=== PATIENT | female | born 1990 | race Caucasian/White ===

== ENCOUNTER → 2022-05-26 | Outpatient (CLI) | payer OTHER, SELFPAY ==
[2022-05-26 21:31] LABS: Vitamin B12 278 pg/mL (211-911)
[2022-05-26 21:39] LABS: ALB/GLOB Ratio 0.9 RATIO (0.9-2.4); AST(SGOT) 19 U/L (15-37); Alanine Aminotransfer ALT/SGPT 22 U/L (13-56); Albumin, Serum 3.7 g/dL (3.2-5.0); Alkaline Phosphatase 51 U/L (45-117); Anion Gap 8 (5-15); BUN 11 mg/dL (7-18); BUN/Creat Ratio 12.7 RATIO (10-20); Calcium,Total 8.7 mg/dL (8.5-10.1); Chloride 109 mmol/L (98-107); Creatinine, Serum 0.87 mg/dL (0.55-1.02); EST Glomerular Filtration Rate 80 mL/min (>60); Est Glom Filt Rate - Afr Amer 97 mL/min (>60); Globulin 4.2 g/dL (2.2-4.2); Glucose 68 mg/dL (74-106); Potassium 3.8 mmol/L (3.5-5.1); Protein, Total 7.9 g/dL (6.4-8.2); Sodium Level 141 mmol/L (136-145); Thyroid Stim Hormone (TSH) 1.18 uIU/mL (0.358-3.74)
== END | disposition home or self-care (01) ==
PROVIDERS: Visit Provider Nurse Practitioner
DX: L65.9 Nonscarring hair loss, unspecified (principal); R63.5 Abnormal weight gain; R53.83 Other fatigue
CPT/HCPCS: 80053; 82607; 84443

== ENCOUNTER → 2023-12-27 | Outpatient (CLI) | payer MEDICAID, SELFPAY ==
[2023-12-27 17:50] LABS: Absolute Lymphocyte Count 2.48 X10^3/uL (0.83-4.51); Absolute Neutrophil Count 4.5 X10^3/uL (2.0-7.7); Basophil# 0.03 X10^3/uL; Basophil% 0.4 % (0-1); Eosinophil# 0.07 X10^3/uL; Eosinophils% 0.9 % (0-5); Hematocrit 40.2 % (37-47); Hemoglobin 13.3 g/dL (12.0-15.0); Lymphocyte # 2.48 X10^3/ul (0.83-4.51); Lymphocyte % 32.1 % (19-41); Mean Corp Hgb Conc 33.1 g/dL (32-36); Mean Corpuscular Hgb 31.5 pg (27.0-32.0); Mean Corpuscular Volume 95.3 fL (81-99); Mean Platelet Vol. 9.4 fl (6.2-12.0); Monocyte# 0.61 X10^3/uL; Monocyte% 7.9 % (0-10); NRBC Flagged by Analyzer 0 % (0-5); Neutrophil # 4.52 X10^3/uL (2.7-7.7); Neutrophil % 58.6 % (47-70); Platelet Count 321 K/mm3 (150-450); RBC Distribution Width SD 45.1 fl (35.1-43.9); Red Blood Count 4.22 M/mm3 (4.2-5.4); White Blood Count 7.7 K/mm3 (4.4-11.0)
[2023-12-27 18:56] LABS: Hemoglobin A1c 5.1 % (3.8-5.6)
[2023-12-29 22:07] LABS: Chlamydia By Nucleic Acid AMP Negative (Negative); Gonococcus By Nucleic Acid AMP Negative (Negative)
[2024-01-05 10:09] LABS: HIV 1/0/2 SCREEN Non Reactive (Non Reactive); Hep C Antibodies Non Reactive (Non Reactive); Syphilis Antibodies Non Reactive (Non Reactive)
== END | disposition home or self-care (01) ==
PROVIDERS: Referring Provider Obstetrics & Gynecology; Visit Provider Obstetrics & Gynecology
DX: Z34.90 Encounter for supervision of normal pregnancy, unspecified, unspecified trimester (principal)
CPT/HCPCS: 86703; 87340; 36415; 83036; 85025; 86762; 86780; 86803; 86850; 86900; 86901; 87491; 87591

== ENCOUNTER 2024-01-11 14:10 | Outpatient (CLI) | payer MEDICAID, SELFPAY | END 2024-01-11 23:59 | disposition home or self-care (01) | LOC: WOBLAB 14:10 | PROVIDERS: Referring Provider Obstetrics & Gynecology; Visit Provider Obstetrics & Gynecology | DX: O09.90 Supervision of high risk pregnancy, unspecified, unspecified trimester (principal); Z3A.00 Weeks of gestation of pregnancy not specified | CPT/HCPCS: 36415; 86850; 86900; 86901 ==

== ENCOUNTER 2024-04-29 14:09 | Outpatient (CLI) | payer MEDICAID, SELFPAY ==
[2024-04-29 14:24] VITALS: BP 119/73; PULSE 86; RESP 16; TEMP 36.9; O2SAT 97
[2024-04-29 14:31] VITALS: BMI 42.2
[2024-04-29] MEDS: Ondansetron 8 MG Tablet PO (15:04)
[2024-04-29] MEDS: Famotidine 20 MG Tablet 40 MG PO (15:13)
--- NOTE | 2024-04-29 16:58 | OB.TRI.HP_ITS ---
HPI - General HPI Narrative MARYSE BACA, is a 34 F who presents at 27.1 with epigastric burning sensation that radiated to her back after eating pizza this afternoon. sips of water worsens sensation. describes as 4-6 minutes of constant burning sensation to the mid epigastic area. this comes and goes. no alleviating measures taken at home except for a warm shower, which did not assist. Maternal Data Information JENA Calculator Estimated Delivery Date Method Current WG Current Estimate 07/28/24 LMP (Uncertain) 27w 1d Other Estimates 07/22/24 Ultrasound #1 28w 0d PFSH PFSH Medical History Rapid weight gain Loss of hair Fatigue Pneumonia Pneumonia due to COVID-19 virus Post-COVID syndrome Home Medications ?Medication ?Instructions ?Recorded ?Last Taken ?Type docosahexaenoic acid 200 mg mg PO 12/17/23 U nknown History capsule ( DHA) ondansetron 4 mg disintegrating 4 mg PO Q6H PRN nausea and 02/08/24 Unknown Rx tablet vomiting #90 tabs fluoxetine 20 mg capsule 20 mg PO QDAY #30 caps 03/22 Unknown Rx hydroxyzine pamoate 50 mg capsule 50 mg PO TID-QID PRN anxiety #60 03/22/24 Unknown Rx caps metoclopramide HCl 10 mg tablet 10 mg PO QAC #60 tabs 04/20/24 Unknown Rx (Reglan) Allergy/AdvReac Type Severity Reaction Status Date / Time codeine AdvReac Severe headaches Verified 04/29/24 14:30 Family History Father Diverticulitis Mother Fibromyalgia Sister Endometriosis Grandfather Congenital heart defect Surgical History S/P Social History adopted: No household members: significant other and children number of children: 1 current occupational status: employed current occupation: [employer] current occupational exposures/hazards: No pets and animals: Yes (Not managing the litter box) pets and animals: cat(s) and dog(s) history of recent travel: No sexually active: Yes Smoking Status: Never smoker alcohol intake: never substance use type: other details: Vape with CBD & THC well-balanced diet: rarely or never caffeine: No eating out: rarely or never during the past year weight has: increased > 10 lbs what type of physical activity do you participate in: walking frequency: 3-4 times per week duration: 15-30 minutes/day seatbelt use: always do you feel safe at home: Yes additional social history: BF: Adrian - neon sign installer History 2 Elective abortions Hx Para 1 Spontaneous abortions Hx # Term Pregnancies 1 Ectopic pregnancies Hx # Pregnancies Multiple births # of living children 1 Past Pregnancies Del. Date Name GA/Weeks Outcome Route Bth Weight Gen Labor Lgth Anesthesia Del Locatn Provider FOB 04/02/15 Charles 39 live - full term 8lbs Male 12 epidural [facility] Dr Debra Stewart Delivery Date: 04/02/15 Last Updated by: Bonnie Maxwell RN Gest diabetes, Induced, HR and O2 dropping - proceeded with csec Visit Details Expected Delivery Route/Plan Wants RCS BS had a cs for failure to progress 9 years ago- Dr. Richardson in [place] Plans Covid status: [] Flu vaccine: [] Tdap vaccine: [] Rhogam: [] LARC form signed: [] Problem list reviewed and updated with the most current plan of care details and appropriate orders placed. Relevant counseling for the gestational age provided. Continue routine care and follow up unless otherwise noted in visit notes/problem list details OB Flowsheet Initial Weight: Not Recorded Date -?-?-?-?-?-?-?-?-?-?-?-?- EGA Weight BP Urine Prot -?-?-?-?-?-?-?-?-?-?-?-?- Glucose FHR FuHt Pres Dilation -?-?-?-?-?-?-?-?-?-?-?-?- Effaced St Visit Note 12/27/23 -?-?-?-?-?-?-?-?-?-?-?-?- 9w 3d 223 lb 8 oz 114/78 -?-?-?-?-?-?-?-?-?-?-?-?- 179 -?-?-?-?-?-?-?-?-?-?-?-?- JV- CRL not cons istent with LMP and period was weird declines NIPT. 01/11/24 -?-?-?-?-?-?-?-?-?-?-?-?- 11w 4d 218 lb 8 oz 107/78 Nega tive -?-?-?-?-?-?-?-?-?-?-?-?- Negative 171 -?-?-?-?-?-?-?-?-?-?-?-?- MH-work in. Fell on stomach earlier today. No cramping or bleeding. Br US confirm FHT. Rhogam given 01/24/24 -?-?-?-?-?-?-?-?-?-?-?-?- 13w 3d 225 lb 128/79 Negative -?-?-?-?-?-?-?-?-?-?-?-?- Negative 150 -?-?-?-?-?-?-?-?-?-?-?-?- kw-no vb/crampin g.US ordered 02/21/24 -?-?-?-?-?-?-?-?-?-?-?-?- 17w 3d 227 lb 4 oz 118/74 Nega tive -?-?-?-?-?-?-?-?-?-?-?-?- Negative 152 -?-?-?-?-?-?-?-?-?-?-?-?- MH-No VB. Logan Damian. Some nausea. Wants RCS BS 03/22/24 -?-?-?-?-?-?-?-?-?-?-?-?- 21w 5d 239 lb 104/72 Negative -?-?-?-?-?-?-?-?-?-?-?-?- Negative 140 -?-?-?-?-?-?-?-?-?-?-?-?- SM- no vb lof go od fm no reuglar ctx discussed anxiety and scheduling cs and BS signed title 199 04/20/24 -?-?-?-?-?-?-?-?-?-?-?-?- 25w 6d 239 lb 126/82 Negative -?-?-?-?-?-?-?-?-?-?-?-?- Negative 150 -?-?-?-?-?-?-?-?-?-?-?-?- JV- pt c/o numbn ess in her left leg. suspect sciatic nerve impingement. plan to consult chiro. title 19 signed today ROS Constitutional Constitutional: Reports systems reviewed and no addt'l complaints, except as documented Gastrointestinal Gastrointestinal: Reports abdominal pain, heartburn and nausea Genitourinary Genitourinary: Reports systems reviewed and no addt'l complaints, except as documented Integumentary Integumentary: Reports systems reviewed and no addt'l complaints, except as documented Physical Exam Const alert and oriented x3 Lymph Lymphatic: no lymphadenopathy noted Resp normal respiratory effort and no retractions GI soft to palpation, non-tender and non-distended Narrative: appropriate for gestational age, gravid. Uterus Palpation: uterus fundus soft Extremity normal to inspection Skin no rashes or lesions noted Psych mental status grossly normal NST FHR Rate Baby A Baseline: 150 Uterine Activity:: none Assessment & Plan (1) Abdominal pain affecting : COMMENT: improved with 40mg pepcid and 8mg zofran po. safe for d/c home with bid pepcid. has zofran rx already. PLAN: Plan Patient presents for triage evaluation secondary to abdominal pain, improved with pepcid and zofran po. no contractions on monitor or palpated. active fetus. FHT: 150 [place]: no Contractions Assessment and plan: reassuring maternal and status patient discharged to home to follow-up in office as needed. See problem list details for additional plan information. Charges/Coding Multi Select Codes Visit Charges Visit Charges: 16841 Subs Hosp L3
== END 2024-04-29 16:33 | disposition home or self-care (01) ==
LOC: WPOUT 14:14 → WP 14:15
PROVIDERS: Referring Provider Registered Nurse; Visit Provider Registered Nurse
DX: O99.891 Other specified diseases and conditions complicating pregnancy (principal); R10.9 Unspecified abdominal pain; Z3A.00 Weeks of gestation of pregnancy not specified
CPT/HCPCS: 59025; 59050; 99221; G0378

== ENCOUNTER → 2024-05-05 | Outpatient (CLI) | payer MEDICAID, SELFPAY ==
[2024-05-05 10:41] LABS: Absolute Lymphocyte Count 1.73 X10^3/uL (0.83-4.51); Absolute Neutrophil Count 4.7 X10^3/uL (2.0-7.7); Basophil# 0.02 X10^3/uL; Basophil% 0.3 % (0-1); Eosinophil# 0.13 X10^3/uL; Eosinophils% 1.8 % (0-5); Hematocrit 35.4 % (37-47); Hemoglobin 11.4 g/dL (12.0-15.0); Lymphocyte # 1.73 X10^3/ul (0.83-4.51); Lymphocyte % 24.5 % (19-41); Mean Corp Hgb Conc 32.2 g/dL (32-36); Mean Corpuscular Hgb 30.4 pg (27.0-32.0); Mean Corpuscular Volume 94.4 fL (81-99); Mean Platelet Vol. 9.6 fl (6.2-12.0); Monocyte# 0.46 X10^3/uL; Monocyte% 6.5 % (0-10); NRBC Flagged by Analyzer 0 % (0-5); Neutrophil # 4.68 X10^3/uL (2.7-7.7); Neutrophil % 66.5 % (47-70); Platelet Count 306 K/mm3 (150-450); RBC Distribution Width CV 12.8 % (11.6-14.6); RBC Distribution Width SD 44.1 fl (35.1-43.9); Red Blood Count 3.75 M/mm3 (4.2-5.4); White Blood Count 7.1 K/mm3 (4.4-11.0)
[2024-05-05 10:48] LABS: Glucose Challenge Gest 1H 50g 135 mg/dL (70-140)
[2024-05-05 11:22] LABS: HIV - WCH Non-Reactive (Nonreactive); Syphilis Antibodies Non-reactive
== END | disposition home or self-care (01) ==
LOC: BWCLAB 09:50
PROVIDERS: Referring Provider Obstetrics & Gynecology; Visit Provider Obstetrics & Gynecology
DX: O26.891 Other specified pregnancy related conditions, first trimester (principal); Z67.91 Unspecified blood type, Rh negative; Z3A.00 Weeks of gestation of pregnancy not specified; Z13.1 Encounter for screening for diabetes mellitus
CPT/HCPCS: 36415; 82950; 85025; 86703; 86780; 86850; 86900; 86901

== ENCOUNTER → 2024-05-12 | Outpatient (CLI) | payer MEDICAID, SELFPAY ==
[2024-05-12 10:31] LABS: Glucose GTT-Gestation. Fasting 94 mg/dL (<105)
[2024-05-12 12:14] LABS: Glucose GTT-Gestational 1 Hr 143 mg/dL (<190)
[2024-05-12 14:24] LABS: Glucose GTT-Gestational 2 Hr 174 mg/dL (<165)
[2024-05-12 17:24] LABS: Glucose GTT-Gestational 3 Hr 151 L (<145)
== END | disposition home or self-care (01) ==
LOC: LAB 09:50
PROVIDERS: Referring Provider Obstetrics & Gynecology; Visit Provider Obstetrics & Gynecology
DX: Z13.1 Encounter for screening for diabetes mellitus (principal)
CPT/HCPCS: 36415; 82951; 82952

== ENCOUNTER 2024-05-23 11:55 | Outpatient (RCR) | payer MEDICAID, SELFPAY ==
--- NOTE | 2024-05-29 14:22 | NS ---
05/29/24 Called pt for phone call follow-up appointment. Pt didn't answer. RDN left voicemail asking pt to call back. Bonnie Russell RDN, LD
== END 2024-06-12 23:59 ==
LOC: NS 11:55
PROVIDERS: Referring Provider Nurse Practitioner Women's Health; Visit Provider Nurse Practitioner Women's Health
DX: Z71.3 Dietary counseling and surveillance (principal); O24.419 Gestational diabetes mellitus in pregnancy, unspecified control; Z3A.00 Weeks of gestation of pregnancy not specified
CPT/HCPCS: 97802

== ENCOUNTER → 2024-06-09 | Outpatient (CLI) | payer MEDICAID, SELFPAY ==
--- NOTE | 2024-06-09 13:09 | US_ITS ---
PROCEDURE: OB LIMITED WITH BIOMETRICS 06/09/2024 REASON FOR EXAM: SIZE DATE DISCREPANCY TECHNIQUE: Transabdominal obstetric ultrasound performed for biometry. COMPARISON: None FINDINGS Transabdominal imaging. Single live intrauterine with cardiac activity detected at 134 beats per minute. Presentation is cephalic. Cervix not visualized. Adnexa not visualized. BEVERLEY 15.8 cm, maximum vertical pocket 5.5 cm. Anterior grade 2 placenta appears within limits. DIMENSIONS: Biparietal Diameter: 8.2 cm/32 weeks 6 days Head Circumference: 29.7 cm/32 weeks 6 days Abdominal Circumference: 29.6 cm/33 weeks 4 days Femur Length: 6.4 cm/33 weeks 0 days FL/AC 22%, FL/BPD 78%, FL/HC 21%, CI 79%, HC/AC 1.0 ESTIMATED WEIGHT: 2181 g +/-327 g ESTIMATED WEIGHT PERCENTILE (24+ weeks): 53% Estimated age by current ultrasound 32 weeks 6 days, JENA 07/29/2024 age by LMP 30 weeks 0 days, JENA 07/28/2024 US/OB Limited With Biometrics IMPRESSION: Single live intrauterine with biometrics as above. Reading Location: [id number]
== END | disposition home or self-care (01) ==
LOC: US 13:08
PROVIDERS: Referring Provider Obstetrics & Gynecology; Visit Provider Obstetrics & Gynecology
DX: O26.849 Uterine size-date discrepancy, unspecified trimester (principal); Z3A.00 Weeks of gestation of pregnancy not specified
CPT/HCPCS: 76816

== ENCOUNTER → 2024-06-29 | Outpatient (CLI) | payer MEDICAID, SELFPAY ==
[2024-06-29 11:55] LABS: ROM Internal Control Test YES-OK TO RESULT pt. (Internal QC); ROM Patient Test Negative (Negative); Record Kit Lot#, ROM+ K3294
== END | disposition home or self-care (01) ==
LOC: LABSPEC 11:26
PROVIDERS: Referring Provider Obstetrics & Gynecology; Visit Provider Obstetrics & Gynecology
DX: O09.91 Supervision of high risk pregnancy, unspecified, first trimester (principal); N89.8 Other specified noninflammatory disorders of vagina; Z3A.00 Weeks of gestation of pregnancy not specified
CPT/HCPCS: 84112; 87081

== ENCOUNTER 2024-07-21 05:22 | Inpatient (IN) | payer MEDICAID, SELFPAY ==
[2024-07-21] VITALS (22 sets, daily range): BP systolic 100–128; BP diastolic 50–84; PULSE 52–78; RESP 12–18; TEMP 35.7–36.6; O2SAT 98–100; BMI 45.8
[2024-07-21] MEDS: Lactated Ringers 1,000 ML 999 ML IV (06:00)
[2024-07-21 06:25] LABS: Absolute Lymphocyte Count 2.22 X10^3/uL (0.83-4.51); Absolute Neutrophil Count 6.6 X10^3/uL (2.0-7.7); Basophil# 0.02 X10^3/uL; Basophil% 0.2 % (0-1); Eosinophil# 0.04 X10^3/uL; Eosinophils% 0.4 % (0-5); Hematocrit 32.7 % (37-47); Hemoglobin 10.6 g/dL (12.0-15.0); Lymphocyte # 2.22 X10^3/ul (0.83-4.51); Mean Corp Hgb Conc 32.4 g/dL (32-36); Mean Corpuscular Hgb 29.1 pg (27.0-32.0); Mean Corpuscular Volume 89.8 fL (81-99); Monocyte% 7.2 % (0-10); NRBC Flagged by Analyzer 0 % (0-5); Neutrophil # 6.62 X10^3/uL (2.7-7.7); Neutrophil % 68.6 % (47-70); Platelet Count 279 K/mm3 (150-450); RBC Distribution Width CV 13.6 % (11.6-14.6); RBC Distribution Width SD 44.4 fl (35.1-43.9); Red Blood Count 3.64 M/mm3 (4.2-5.4); White Blood Count 9.7 K/mm3 (4.4-11.0)
[2024-07-21] MEDS: Acetaminophen 500 MG Tablet 1000 MG PO ×3 (06:28→19:04)
--- NOTE | 2024-07-21 06:57 | HP.PCM.OB_ITS ---
HPI - General General Date of Admission: 07/21/24 HPI Narrative MARYSE CALIX, is a 34 y/o @ 39 weeks 0 days who presents to L&D for a repeat section and BTL Maternal Data Information JENA Calculator Estimated Delivery Date Method Current WG Current Estimate 07/28/24 LMP (Uncertain) 39w 0d Other Estimates 07/22/24 Ultrasound #1 39w 6d PFSH PFSH Medical History (Updated 07/21/24 @ 06:35 by Trudy Reardon) Depression Anxiety Gestational diabetes Pneumonia Pneumonia due to COVID-19 virus Post-COVID syndrome Fatigue Loss of hair Rapid weight gain Home Medications ?Medication ?Instructions ?Recorded ?Last Taken ?Type docosahexaenoic acid 200 mg mg PO 12/17/23 0 07/20/24 History capsule ( DHA) hydroxyzine pamoate 50 mg capsule 50 mg PO TID-QID PRN anxiety #60 03/22/24 Unknown Rx caps famotidine 20 mg tablet (Pepcid) 20 mg PO BID heart bu rn #60 tabs 05/05/24 07/21/24 Rx blood sugar diagnostic (Blood #120 ea 05/15/24 Unknown Rx Glucose Test strips) blood-glucose meter #1 ea 05/15/24 Unknown Rx lancets #200 ea 05/15/24 Unknown Rx omeprazole 20 mg capsule,delayed 20 mg PO QDAY acid re flux #90 caps 05/18/24 Unknown Rx release ondansetron 4 mg disintegrating 4 mg PO Q6H PRN nausea and 07/14/24 07/20/24 Rx tablet vomiting #90 tabs Allergy/AdvReac Type Severity Reaction Status Date / Time codeine AdvReac Severe headaches Verified 07/21/24 05:53 Family History Father Diverticulitis Mother Fibromyalgia Sister Endometriosis Grandfather Congenital heart defect Surgical History S/P Social History adopted: No household members: significant other and children number of children: 1 current occupational status: employed 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 - [employer] current occupational exposures/hazards: No pets and animals: Yes (Not managing the litter box) pets and animals: cat(s) and dog(s) history of recent travel: No sexually active: Yes Smoking Status: Former smoker alcohol intake: never substance use type: other details: Vape with CBD & THC well-balanced diet: rarely or never caffeine: No eating out: rarely or never during the past year weight has: increased > 10 lbs what type of physical activity do you participate in: walking frequency: 3-4 times per week duration: 15-30 minutes/day seatbelt use: always do you feel safe at home: Yes additional social history: BF: [employer] - marine radio installer and servicer History 2 Elective abortions Hx Para 1 Spontaneous abortions Hx # Term Pregnancies 1 Ectopic pregnancies Hx # Pregnancies Multiple births # of living children 1 Past Pregnancies Del. Date Name GA/Weeks Outcome Route Bth Weight Infant Gen Labor Lgth Anesthesia Del Locatn Provider FOB 04/02/15 Charles 39 live - full term 8lbs Male [address] [facility] Dr Debra Stewart Delivery Date: 04/02/15 Last Updated by: Bonnie Maxwell RN Gest diabetes, Induced, HR and O2 dropping - proceeded with csec Visit Details Expected Delivery Route/Plan Wants RCS BS had a cs for failure to progress 9 years ago- Dr. Richardson in [place] Plans Covid status: [] Flu vaccine: [] Tdap vaccine: [] Rhogam: done 05/05 LARC form signed: done Problem list reviewed and updated with the most current plan of care details and appropriate orders placed. Relevant counseling for the gestational age provided. Continue routine care and follow up unless otherwise noted in visit notes/problem list details OB Flowsheet Initial Weight: Not Recorded Date -?-?-?-?-?-?-?-?-?-?-?-?- EGA Weight BP Urine Prot -?-?-?-?-?-?-?-?-?-?-?-?- Glucose FHR FuHt Pres Dilation -?-?-?-?-?-?-?-?-?-?-?-?- Effaced St Visit Note 12/27/23 -?-?-?-?-?-?-?-?--?-?-?-?- 9w 3d 223 lb 8 oz 114/78 -?-?-?-?-?-?-?-?-?-?-?-?- 179 -?-?-?-?-?-?-?-?-?-?-?-?- JV- CRL not cons istent with LMP and period was weird declines NIPT. 01/11/24 -?-?-?-?-?-?-?-?-?-?-?-?- 11w 4d 218 lb 8 oz 107/78 Nega tive -?-?-?-?-?-?-?-?-?-?-?-?- Negative 171 -?-?-?-?-?-?-?-?-?-?-?-?- -work in. Fell on stomach earlier today. No cramping or bleeding. Br US confirm FHT. Rhogam given 01/24/24 -?-?-?-?-?-?-?-?-?-?-?-?- 13w 3d 225 lb 128/79 Negative -?-?-?-?-?-?-?-?-?-?-?-?- Negative 150 -?-?-?-?-?-?-?-?-?-?-?-?- kw-no vb/crampin g.US ordered 02/21/24 -?-?-?-?-?-?-?-?-?-?-?-?- 17w 3d 227 lb 4 oz 118/74 Nega tive -?-?-?-?-?-?-?-?-?-?-?-?- Negative 152 -?-?-?-?-?-?-?-?-?-?-?-?- MH-No VB. Logan F M. Some nausea. Wants RCS BS 03/22/24 -?-?-?-?-?-?-?-?-?-?-?-?- 21w 5d 239 lb 104/72 Negative -?-?-?-?-?-?-?-?-?-?-?-?- Negative 140 -?-?-?-?-?-?-?-?-?-?-?-?- SM- no vb lof go od fm no reuglar ctx discussed anxiety and scheduling cs and BS signed title 199 04/20/24 -?-?-?-?-?-?-?-?-?-?-?-?- 25w 6d 239 lb 126/82 Negative -?-?-?-?-?-?-?-?-?-?-?-?- Negative 150 -?-?-?-?-?-?-?-?-?-?-?-?- JV- pt c/o numbn ess in her left leg. suspect sciatic nerve impingement. plan to consult chiro. title 19 signed today 05/05/24 -?-?-?-?-?-?-?-?-?-?-?-?- 28w 0d 241 lb 116/76 -?-?-?-?-?-?-?-?-?-?-?-?- 145 -?-?-?-?-?-?-?-?-?-?-?-?- KW- no vb/lof/ct x. good fm. just failed glucose. needs 3 hour. rhogam today. LARC done. 05/18/24 -?-?-?-?-?-?-?-?-?-?-?-?- 29w 6d 243 lb 8 oz 102/70 Nega tive -?-?-?-?-?-?-?-?-?-?-?-?- Negative 140 -?-?-?-?-?-?-?-?-?-?-?-?- JV- started doin g her glucose log and fasting today was 85. That was the first one. will continue to monitor. No lof, vaginal bleeding, or dec fm. larc signed today 06/01/24 -?-?-?-?-?-?-?-?-?-?-?-?- 31w 6d 241 lb 4 oz 120/81 Trac e -?-?-?-?-?-?-?-?-?-?-?-?- Negative 136 36.5 -?-?-?-?-?-?-?-?-?-?-?-?- JV- fasting gluc ose between 70-90. title 19 today. growth ultrasound for 32 weeks and plan again at 36 06/15/24 -?-?-?-?-?-?-?-?-?-?-?-?- 33w 6d 243 lb 123/80 Negative -?-?-?-?-?-?-?-?-?-?-?-?- Negative 145 38 Cephalic -?-?-?-?-?-?-?-?-?-?-?-?- JV- fasting leve ls les than 95. only has a couple elevated levels a after meals when goes out to eat. has had upper respiratory track infection x 2 weeks. will try z-martin. JV- fasting levels les than 95. only has a couple elevated levels a after meals when goes out to eat. has had upper respiratory track infection x 2 weeks. will try z-martin. growth was 53rd% overall. 06/29/24 -?-?-?-?-?-?-?-?-?-?-?-?- 35w 6d 248 lb 6 oz 127/82 Nega tive -?-?-?-?-?-?-?-?-?-?-?-?- Negative 157 39 Cephalic 1 -?-?-?-?-?-?-?-?-?-?-?-?- 0 -3 JV- patien t complains of leaking fluid. Rom + sent stat. will call with results. no dec fm or bleeding. some cramping. 07/05/24 -?-?-?-?-?-?-?-?-?-?-?-?- 36w 5d 243 lb 6 oz 121/87 Nega tive -?-?-?-?-?-?-?-?-?-?-?-?- Negative 150 44 Cephalic -?-?-?-?-?-?-?-?-?-?-?-?- JV- no lof, vagi nal bleeding, or dec fm. Does have lots of pressure. fh measuring large. has scheduled cs for 39 weeks. Has to go to a for a 16 year old cousin in [place] this weekend. travel precautions discussed. glucose levels all normal. 07/14/24 -?-?-?-?-?-?-?-?-?-?-?-?- 38w 0d 245 lb 8 oz 110/75 Nega tive -?-?-?-?-?-?-?-?-?-?-?-?- Negative 125 45 Cephalic -?-?-?-?-?-?-?-?-?-?-?-?- JV- surgery cons ent and body wash given. surgery next Wednesday. no lof, vaginal bleeding, or dec fm. 07/20/24 -?-?-?-?-?-?-?-?-?-?-?-?- 38w 6d 247 lb 2 oz 115/79 Nega tive -?-?-?-?-?-?-?-?-?-?-?-?- Negative 150 41 Cephalic -?-?-?-?-?-?-?-?-?-?-?-?- JV- no lof, vagi nal bleeding, or dec fm. no complaints other than some light headed feeling when in car for too long. surgery is tomorrow am. ROS Constitutional Constitutional: Denies change in weight, fatigue, fever(s), headache(s), poor appetite or weakness Eyes Eyes: Denies blurry vision, change in vision, seeing flashes or spots in vision ENT HEENT: Denies dizziness, headache(s), loss taste/smell or sore throat Cardiovascular Cardiovascular: Denies chest pain, dizziness, dyspnea, irregular heart rhythm, leg edema, palpitations, rapid heart rate or vomiting Respiratory/Chest Respiratory/Chest: Denies chest tightness, cough, dyspnea or breast pain Gastrointestinal Gastrointestinal: Denies abdominal pain, anorexia, constipation, cramping, diarrhea, hemorrhoids, vomiting or weight changes Genitourinary Genitourinary: Denies dysuria, flank pain, genital lesions, genital pain, urinary frequency or urinary urgency Musculoskeletal Musculoskeletal: Denies back pain, difficulty walking, joint pain, limited range of motion, muscle cramps or numbness Integumentary Integumentary: Denies lesions or unusual bruising Neurologic Neurologic: Denies abnormal movements, abnormal speech, dizziness, numbness, seizure-like activity or syncope Psychiatric Psychiatric: Denies anxiety, behavioral changes, change in appetite, change in libido, cognitive impairment, confusion, depression, difficulty concentrating, hallucinations or suicidal thoughts Endocrine Endocrinology: Denies excessive sweating, polydipsia or polyuria Hematologic/Lymphatic Hematologic/Lymphatic: Denies easy bleeding, easy bruising or lymphadenopathy Allergic/Immunologic Allergic/Immunologic: Denies itchy eyes, lip swelling, seasonal rhinorrhea, rhinitis, throat swelling, tongue swelling, eczemia, wheezing or asthma Vital Signs Vital Signs Vital Signs: 07/21/24 05:51 07/21/24 05:51 07/21/24 05:51 Temperature Temperature Source Pulse Rate 71 72 Respiratory Rate Blood Pressure 117/73 Blood Pressure Mean BP Systolic 117 BP Diastolic 73 Blood Pressure Source Blood Pressure Position Blood Pressure Location Pulse Ox Oxygen Delivery Method 07/21/24 05:51 07/21/24 05:51 07/21/24 05:51 Temperature Temperature Source Temporal Pulse Rate Respiratory Rate 18 Blood Pressure Blood Pressure Mean BP Systolic BP Diastolic Blood Pressure Source Blood Pressure Position Blood Pressure Location Pulse Ox 100 Oxygen Delivery Method 07/21/24 05:51 07/21/24 05:56 07/21/24 05:56 Temperature 97.4 F L Temperature Source Pulse Rate 77 Respiratory Rate Blood Pressure Blood Pressure Mean BP Systolic BP Diastolic Blood Pressure Source Blood Pressure Position Blood Pressure Location Pulse Ox 100 Oxygen Delivery Method 07/21/24 06:28 Temperature 97.4 F L Temperature Source Temporal Pulse Rate 77 Respiratory Rate 18 Blood Pressure 117/73 Blood Pressure Mean 87 BP Systolic BP Diastolic Blood Pressure Source Monitor Blood Pressure Position Semi-Fowlers Blood Pressure Location Right Arm Pulse Ox 100 Oxygen Delivery Method Room Air Weight Weight: 250 lb 9.6 oz Body Mass Index (BMI) 45.8 Physical Exam Const alert, oriented x3, no apparent distress and healthy appearing General Appearance: cooperative; Negative for anxious HEENT normocephalic Face and Sinus: normal facial exam Eyes EOMs intact bilaterally and no scleral icterus General Eye: normal appearance of both eyes Neck full ROM and supple Lymph Lymphatic: no lymphadenopathy noted Chest Chest: abnormal inspection of the chest Resp normal respiratory effort Effort and Inspection: able to speak in complete sentences Cardio regular rate GI soft to palpation and non-tender Inspection: gravid Palpation: soft; Negative for tender Back/Spine no CVA tenderness Extremity normal to inspection, full ROM and no clubbing, cyanosis or edema General Extremity: Negative for calf tenderness or edema Skin Lesions: no lesions Rashes: no rashes Psych mental status grossly normal Labs Labs Labs: Blood Type O NEGATIVE Antibody Screen NEGATIVE Hct 32.7 % (37-47) L Hgb 10.6 g/dL (12.0-15.0) L Obstetrics Ultrasound Syphilis Total Ab Non-reactive Hep Bs Antigen Pending Hepatitis C Ab (EIA) Non Reactive (Non Reactive) Chlamydia DNA (ROMARIO) Negative (Negative) N.gonorrhoeae DNA (ROMARIO) Negative (Negative) HIV 1&2 Antibody Non-Reactive (Nonreactive) Glucose 1 Hr 50 gm 135 mg/dL (70-140) Gest Glucose Tolerance MG/DL Assessment & Plan (1) Uterine size date discrepancy: (2) Gestational diabetes mellitus (GDM) affecting , antepartum: COMMENT: BS testing fasting & 2 HR PP, facilities administrator consultation (3) Abnormal glucose affecting : COMMENT: abnormal 3 hour gct (4) Abdominal pain affecting : COMMENT: improved with 40mg pepcid and 8mg zofran po. safe for d/c home with bid pepcid. has zofran rx already. (5) Contraception management: QUALIFIERS: Contraceptive encounter type: other general counseling and advice Qualified Code(s): Z30.09 - Encounter for other general counseling and advice on contraception COMMENT: Jessica BROOKS BS: signed title 19 (6) Rh negative status during : QUALIFIERS: Trimester: first trimester Qualified Code(s): O26.891 - Other specified related conditions, first trimester; Z67.91 - Unspecified blood type, Rh negative COMMENT: Rhogam 28 wk, pp and prn bleeding. Given 01/11/24 d/t fall. (7) AMA (advanced maternal age) multigravida 35+: QUALIFIERS: Trimester: first trimester Qualified Code(s): O09.521 - Supervision of elderly multigravida, first trimester (8) Obesity affecting : QUALIFIERS: Trimester: second trimester Obesity type affecting : unspecified obesity Qualified Code(s): O99.212 - Obesity complicating , second trimester COMMENT: HgBA1C ordered with NOB labs (9) Drug use: COMMENT: Vape w/CBD & THC Last use 1 year ago (10) H/O gestational diabetes in prior , currently : (11) Supervision of high-risk : QUALIFIERS: Trimester: first trimester Qualified Code(s): O09.91 - Supervision of high risk , unspecified, first trimester COMMENT: PRR, , JENA 07/28/24, PC: Charles BF: Adrian On OCP at conception (12) : QUALIFIERS: Weeks of gestation: 38 weeks Qualified Code(s): Z3A.38 - 38 weeks gestation of COMMENT: GBS neg, Discussed genetic/carrier testing - declines, unremarkable anatomy, consistent dates (13) H/O: : COMMENT: x1, 2015: Wants to discuss csection vs : she wants repeat c section and bilat salpigectomy, Scheduled for 07/21 @ 7:15 with JV (14) Anxiety and depression: COMMENT: On Prozac PLAN: Plan After discussing the patient's diagnosis and treatment plan options, patient wishes to proceed with surgical management. I have discussed with the patient the risks, benefits, and alternatives of the procedure which include but are not limited to risks of anesthesia, bleeding, infection, possible damage to bowel, bladder, or surrounding vasculature which could lead to additional surgery to evaluate any complications. Patient agrees to procedure and wishes to proceed.
[2024-07-21] MEDS: Sodium Citrate/Citric Acid 30 ML UDC PO (06:58)
[2024-07-21 07:01] LABS: Syphilis Antibodies Nonreactive (Nonreactive)
--- NOTE | 2024-07-21 07:02 | PCM.DC ---
Discharge Instructions Diet Discharge Diet: No restrictions DC O2, CPAP, BIPAP needs Home O2 Discharge instructions: No Dressing / Incision Discharge Activity: May Not Drive (for 2 weeks or while taking narcotic pain medications.), May Shower and May Take a Tub Bath (in 7 days.) May resume sexual activity in: 4-6 weeks Weight Bearing Status: Full weight bearing Lifting Restrictions: 20 pounds Dressing / Incision Call your doctor if your incision/area has: Continuous Slow Oozing, Sudden Increased Bleeding, Increased Pain/ Swelling, Increased Redness and Foul Smelling Discharge Call your doctor if you observe: Fever of 101 or Higher and Using more than 1 pad per hour Suture Line Care: Avoid Pulling/Pushing and Avoid Pinching/Bending Cleanse incision/area with: Soap & Water and Keep Dressing Clean & Dry Follow Up Care Please Follow Up With: Geovanna Galloway DO When: Call [phone] to make an appointment for an incision check in 1-2 weeks. Test Results: Test results from this visit will be discussed in further detail at your follow-up appointment, if applicable. Discharge Plan Admission Admit Date/Time: 07/21/24 05:22 Primary Reason for Your Visit: section Attending Provider: Geovanna Galloway Primary Care Provider: Care Physician,No Primary Discharge Orders/Prescriptions Prescriptions: New ibuprofen 800 mg tablet 800 mg PO Q8H PRN (Reason: pain) Qty: 30 0RF oxycodone-acetaminophen [Percocet] 5-325 mg tablet 1 tab PO Q4H PRN (Reason: pain) 7 Days Qty: 20 0RF Continued DHA 200 mg capsule PO hydroxyzine pamoate 50 mg capsule 50 mg PO TID-QID PRN (Reason: anxiety) Qty: 60 4RF famotidine [Pepcid] 20 mg tablet 20 mg PO BID Qty: 60 3RF omeprazole 20 mg capsule,delayed release(DR/EC) 20 mg PO QDAY Qty: 90 3RF ondansetron 4 mg tablet,disintegrating 4 mg PO Q6H PRN (Reason: nausea and vomiting) Qty: 90 4RF (DME) Blood Glucose Test Strip See Rx Instructions .MEDSUPPLY Qty: 120 5RF Rx Instructions: As directed-fasting & 2 hr post meals (DME) blood-glucose meter Misc See Rx Instructions .MEDSUPPLY Qty: 1 0RF Rx Instructions: As directed- Test fasting and 2 hours after meals (DME) lancets Misc See Rx Instructions .[employer] Qty: 200 5RF Rx Instructions: As directed-fasting & 2 hr post meals Referrals / Follow Up: Care Physician,No Primary [Primary Care Provider] -
[2024-07-21] MEDS: Lactated Ringers 1,000 ML 150 ML IV (07:03)
[2024-07-21 07:10] LABS: Bedside Glucose 88 mg/dL (74-106)
[2024-07-21 07:43] LABS: Hepatitis B Surface Antigen Nonreactive (Nonreactive)
[2024-07-21] MEDS: Cefazolin 2 GM in 0.9% Normal Saline (100mL Bag) 100 ML IV (07:51)
--- NOTE | 2024-07-21 08:22 | OP.PCM_ITS ---
Assessment & Plan (1) Gestational diabetes mellitus (GDM) affecting , antepartum: COMMENT: BS testing fasting & 2 HR PP, biology specialist consultation (2) Contraception management: QUALIFIERS: Contraceptive encounter type: other general counseling and advice Qualified Code(s): Z30.09 - Encounter for other general counseling and advice on contraception COMMENT: Wants TODD BS: signed title 19 (3) Rh negative status during : QUALIFIERS: Trimester: first trimester Qualified Code(s): O26.891 - Other specified related conditions, first trimester; Z67.91 - Unspecified blood type, Rh negative COMMENT: Rhogam 28 wk, pp and prn bleeding. Given 01/11/24 d/t fall. (4) AMA (advanced maternal age) multigravida 35+: QUALIFIERS: Trimester: first trimester Qualified Code(s): O09.521 - Supervision of elderly multigravida, first trimester (5) Obesity affecting : QUALIFIERS: Trimester: second trimester Obesity type affecting : unspecified obesity Qualified Code(s): O99.212 - Obesity complicating , second trimester COMMENT: HgBA1C ordered with NOB labs (6) Drug use: COMMENT: Vape w/CBD & THC Last use 1 year ago (7) H/O gestational diabetes in prior , currently : (8) Supervision of high-risk : QUALIFIERS: Trimester: first trimester Qualified Code(s): O09.91 - Supervision of high risk , unspecified, first trimester COMMENT: PRR, , JENA 07/28/24, PC: Charles BF: Adrian On OCP at conception (9) H/O: : COMMENT: x1, 2015: Wants to discuss csection vs : she wants repeat c section and bilat salpigectomy, Scheduled for 07/21 @ 7:15 with JV Maternal Data Information JENA Calculator Estimated Delivery Date Method Current WG Current Estimate 07/28/24 LMP (Uncertain) 39w 0d Other Estimates 07/22/24 Ultrasound #1 39w 6d Final JENA: 07/28/24 Gestational age: 39 weeks Operative Report (OB) Details Procedure Type: low transverse Date of Procedure: 07/21/24 Procedure Start Time: 07:41 Procedure Stop Time: 08:19 Time of Delivery: 07:46 Pre-Operative Diagnosis: Repeat Elective Post-Operative Diagnosis: Same as Pre-operative diagnosis Classification: Scheduled Type of Anesthesia: Spinal Antibiotic Given: Ancef 3 grams IV x1 Drain: Morris to straight drain Estimated Blood Loss: 400c c Findings Description of surgery: The patient was brought to the operating room where Spinal anesthesia was administered. She was prepped and draped in the normal sterile fashion and was placed in a dorsal supine position with a leftward tilt. Pfannenstiel skin incision was made with a scalpel and carried through to the underlying layers. The fascia was nicked in the midline and extended laterally using Sanz scissors. The anterior aspect of the fascia was grasped with Hailey clamps and the underlying rectus muscles dissected off using the Metzenbaum scissors. The inferior aspect the fascia was also grasped with Hailey clamps and the underlying rectus muscle dissected off with the Metzenbaum scissors. The rectus muscles were in the midline. Peritoneum was entered sharply. The uterus was identified and a bladder blade was inserted into the abdomen. Bladder flap was created off the uterus using Metzenbaum scissors. A transverse incision was made with a scalpel and extended laterally manually. The 's head was grasped with the help of my land surveyor assistant and fundal pressure the was delivered through the uterine incision without difficulty. The mouth and na res were bulb suctioned. After a 30 second delay the cord was clamped and cut. The was handed off to the awaiting weather clerk for routine assessment. Placenta was delivered manually without difficulty. The uterus was exteriorized and cleared of all clots and debris. Incision was closed with an 0 Vicryl suture in a running locked fashion. Second layer of 1-0 monocryl suture was used in imbricating manner to create excellent closure and hemostasis. The right tube was grasped with a Lulu clamp and the underlying mesosalpinx was cauterized and cut with the ligasure device removing the entire tube and fimbriated end. The same procedure was performed on the opposite side. Both fallopian tubes were passed off for pathology analysis. The uterus was returned to the abdomen. The gutters were cleared of all clots and debris. The peritoneum was closed in a pursestring pattern using a 3-0 Vicryl suture. This muscle was reapproximated with a 3-0 Vicryl. The fascia was closed with an 0 stratafix Vicryl suture. Subcutaneous tissue layer was closed using a plain gut suture. The skin was closed with a 4-0 Monocryl subcuticular stitch. The skin was also sealed with surgical glue. The patient tolerated the procedure well sponge lap and needle counts were correct at each tissue closure plane and the patient is now being brought to the recovery room in stable condition Surgical findings: viable female infant, apgars 8,9 Tiffanie Presentation: Vertex Amniotic Membrane Rupture Type: Artificial Amniotic Fluid Description: Clear Placental Delivery Description: Expressed Placenta Disposition: [facility] Specimen collected: No Cord Vessel Description: 3 Vessels Cord Entanglement: Around neck x 1, loose Nuchal Cord Compression: Without compression A gender: Female (1 minute): 8 (5 minute): 9 Delayed Cord Clamping: Yes Rnp life tester outboard motors: Yes Reading Intervention Teacher: Myrna Degroot Tasks completed by collections assistant: Closing and Retracting Additional land surveyor assistant?: No Complications Complications: No Multi Select Codes Urinary/Genital Urinary/Genital CPT Codes: 50599 delivery+PP Care([facility])
[2024-07-21] MEDS: Oxytocin 15 Units/NS 250ml 15 UNITS/250 ML IV.SOLN 83 UNITS IV (08:40)
[2024-07-21] MEDS: Ketorolac 30 MG/ML Syringe IV ×3 (09:13→21:05)
[2024-07-21 09:15] LABS: Amphetamine Urine NEGATIVE (<1000 ng/mL); Barbiturate Urine NEGATIVE (< 200 ng/mL); Benzodiazepine Urine NEGATIVE (< 200 ng/mL); Cocaine Urine NEGATIVE (< 300 ng/mL); Methadone Urine NEGATIVE (< 300 ng/mL); Opiates Urine NEGATIVE (< 300 ng/mL); PCP Urine NEGATIVE (< 25 ng/mL); THC Urine NEGATIVE (< 50 ng/mL)
[2024-07-21 09:40] LABS: Bedside Glucose 93 mg/dL (74-106)
--- NOTE | 2024-07-21 10:05 | FALS_PTH ---
PATIENT: MARYSE CALIX LOC: [facility] U#:[id number] AGE/SX: 34/F ROOM: [facility] RE07/21/[address]: Dr. Geovanna Galloway DO : 1990 BED: 1 DIS: 07/22/2024 SPEC #: [id number] RECD: 07/21/24 11:37 STATUS: ELISA COLTON #: [id number] COLTEN: 07/21/24 10:[address]: Geovanna Gallowya DEPT: SURGICAL PATHOLOGY RECD BY: Lee Larry ENTERED: 07/21/24 12:07 SP TYPE: FALL TUBES OTHR DR: No Primary Care Phys Tissues: A - Fallopian tube Procedures: Surgery Specimen Level II HEADER OPERATION: Tubal ligation PRE-OP DIAGNOSIS: Repeat section TISSUE SUBMITTED: A- Bilateral fallopian tubes MICROSCOPIC DIAGNOSIS A. Bilateral fallopian tubes, salpingectomy: * Benign fallopian tubes with complete cross sections obtained * Benign paratubal cysts MICROSCOPIC DESCRIPTION Slides are reviewed. GROSS DESCRIPTION A. Received in formalin in a container labeled with the patient's name, date of , and tie R tube are bilateral fimbriated fallopian tube segments, the right received with a stitch. The right is 5.5 cm in length by 1.2 cm in diameter, and the left is 8.5 cm in length by 0.8 cm in diameter. Each display dailey-pink, smooth, and glistening serosa with an unremarkable fimbriated end. The right exhibits 2 paratubal cysts, each measuring 0.3 cm in greatest dimension. Sectioning of each tube reveals a pinpoint lumen. Medical Technologist Prn sections:A1. Right tubeA2. Left tube [facility] 07-21-2024 CPT:14414u5
[2024-07-21] MEDS: Lactated Ringers 1,000 ML 100 ML IV (11:47)
[2024-07-21 11:52] LABS: Pathology Specimen OB SEE PATHOLOGY REPORT
[2024-07-21] MEDS: 0.9% Saline Lock 10 ML Syringe IV (12:26)
[2024-07-21] MEDS: Rho(D) Immune Globulin 300 MCG (1500 Unit) Syringe IV (17:06)
[2024-07-21] MEDS: Enoxaparin 40 MG/0.4 ML Syringe SC (21:05)
[2024-07-22] VITALS (7 sets, daily range): BP systolic 115–135; BP diastolic 58–75; PULSE 56–80; RESP 16–18; TEMP 36.2–36.6; O2SAT 97–100
[2024-07-22] MEDS: Acetaminophen 500 MG Tablet 1000 MG PO ×3 (01:38→13:37)
--- NOTE | 2024-07-22 02:04 | PCM.PN.CNM ---
Subjective Subjective Patient doing well without complaints. Tolerating PO. Ambulating without difficulty, due to void after gee removal. Feeding well. Denies chest pain, shortness of breath, calf pain/swelling, fevers, chills, lightheadedness. Objective Data Objective Data Vital Signs: Vital Signs Temp Pulse Resp BP Pulse Ox O2 Del Method 97.9 F 80 16 116/66 98 Room Air 07/22/24 00:08 07/22/24 01:39 07/22/24 01:39 07/22/24 00:08 07/22/24 01:39 07/22/24 01:39 Oxygen Delivery Method Room Air Weight: 250 lb 9.6 oz Body Mass Index (BMI) 45.8 Intake & Output: Intake and Output for Last 24 Hours 07/20/24 07/21/24 07/22/24 23:59 23:59 23:59 Intake Total 2571.67 / 2571.67 Output Total 1400 / 1400 Balance 1171.67 / 1171.67 Lab / Micro Data 07/21/24 06:00 Labs: Laboratory Results - last 24 hr 07/21/24 06:00: WBC 9.7, RBC 3.64 L, Hgb 10.6 L, Hct 32.7 L, MCV 89.8, MCH 29.1, MCHC 32.4, RDW Std Deviation 44.4 H, RDW Coeff of Summer 13.6, Plt Count 279, MPV 10.0, Immature Gran % (Auto) 0.600, Neut % (Auto) 68.6, Lymph % (Auto) 23.0, Coryell % (Auto) 7.2, Eos % (Auto) 0.4, Baso % (Auto) 0.2, Absolute Neuts (auto) 6.6, Absolute Lymphs (auto) 2.22, Nucleated RBC % 0, Syphilis Total Ab Nonreactive, Hep Bs Antigen Nonreactive, Blood Type O NEGATIVE, Antibody Screen NEGATIVE 07/21/24 06:36: Urine Opiates Screen Cancelled, U Buprenorphine Qual Cancelled, Ur Oxycodone Screen Cancelled, Urine Methadone Screen Cancelled, Urine Fentanyl Screen Cancelled, Ur Barbiturates Screen Cancelled, Ur Phencyclidine Scrn Cancelled, Ur Amphetamines Screen Cancelled, U Benzodiazepines Scrn Cancelled, Urine Cocaine Screen Cancelled, U Cannabinoids Screen Cancelled 07/21/24 06:44: POC Glucose 88 07/21/24 06:45: Urine Opiates Screen NEGATIVE, Urine Methadone Screen NEGATIVE, Ur Barbiturates Screen NEGATIVE, Ur Phencyclidine Scrn NEGATIVE, Ur Amphetamines Screen NEGATIVE, MDMA (Ecstasy) Screen TNP, U Benzodiazepines Scrn NEGATIVE, Urine Cocaine Screen NEGATIVE, U Cannabinoids Screen NEGATIVE, Ur Drug Screen Comment 07/21/24 09:18: POC Glucose 93 07/21/24 12:35: Screen NEGATIVE, Baby's Blood Type O POSITIVE, Baby's URVASHI NEGATIVE Physical Exam Const alert and oriented x3 Neck full ROM Chest inspection of chest normal Resp normal respiratory effort, normal air movement and clear to auscultation bilaterally GI normal to inspection, nondistended, normoactive bowel sounds Uterus Palpation: uterus fundus firm Extremity normal to inspection, full ROM and no calf tenderness Skin no rashes or lesions noted Skin Narrative: dressing c/d/i Psych mental status grossly normal Assessment & Plan (1) S/P : COMMENT: 2016 x1 (2) Gestational diabetes mellitus (GDM) affecting , antepartum: COMMENT: BS testing fasting & 2 HR PP, environmental research scientist consultation (3) Drug use: COMMENT: Vape w/CBD & THC Last use 1 year ago PLAN: Plan s/p LTCS PPD # 1 1. routine post care 2. breast feeding- support given 3. rh neg- rhogam per protocol 4. rubella immune
[2024-07-22] MEDS: Ketorolac 30 MG/ML Syringe IV (02:49)
[2024-07-22] MEDS: 0.9% Saline Lock 10 ML Syringe IV (02:49)
[2024-07-22 05:45] LABS: Hematocrit 30.8 % (37-47); Mean Corp Hgb Conc 32.5 g/dL (32-36); Mean Corpuscular Hgb 29.2 pg (27.0-32.0); Mean Corpuscular Volume 89.8 fL (81-99); Mean Platelet Vol. 9.7 fl (6.2-12.0); Platelet Count 237 K/mm3 (150-450); RBC Distribution Width CV 13.6 % (11.6-14.6); RBC Distribution Width SD 44.5 fl (35.1-43.9); Red Blood Count 3.43 M/mm3 (4.2-5.4); White Blood Count 8.9 K/mm3 (4.4-11.0)
[2024-07-22 05:58] LABS: Bedside Glucose 84 mg/dL (74-106)
[2024-07-22] MEDS: Enoxaparin 40 MG/0.4 ML Syringe SC (09:32)
[2024-07-22] MEDS: Ibuprofen 600 MG Tablet PO ×2 (09:33→15:38)
[2024-07-22] MEDS: Senna/Docusate Sodium 1 Tablet PO (09:33)
[2024-07-22] MEDS: oxyCODONE 5 MG Tablet PO (14:24)
--- NOTE | 2024-07-22 18:00 | CASEMGMT ---
Social Work Assessment Labor and Delivery Unit Patient Address: [address] [place] [address] ?[address] [place] [address] Phone number: [phone] Date of Referral: 07/21/24 Time of Referral: 05:31 Referred By: Geovanna Galloway Date of Intervention: 07/22/2024 Time of Intervention: 18:02 Reason for Referral: Mental Health: Anxiety, and Depression. History obtained from: Medical records, mother of baby (MOB) and father of baby (FOB).? Household composition: MOB, FOB (Jw Gonzalez, age 33), MOB?s 9 year-old(yo) son Charles Knutson, (50/50 shared custody) FOB?s children (50/50 shared custody) 11yo daughter Tess, 8yo son Julio, 6yo son Karson, 2 yo daughter Silke and MOB and FOB?s daughter Tiffanie Gonzalez, born on 07/21/2024. Patient's parent/guardian status: MOB and FOB have been together for 2 years and are not . Medical History: : 2, Para, now 2. MOB received PCN through [place] beginning at 9 weeks and 3 days.? Visits were observed to be routine. Apgars: 8 and 9. Weight: 8lbs, 5oz. Wellness Spa Manager: Dr. Missy hKan. Educational Status: MOB and FOB denied any concerns/problems with reading or writing.? MOB earned her high school diploma and the FOB earned his GED. Financial Status: MOB and FOB reported their income is sufficient to meet the needs of their family at this time. 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 The FOB is also employed full-time with [employer] as a floor worker. Infant Supplies: MOB and FOB reported they have all the supplies they need for baby at this time including but not limited to: Car seat, bassinet, all-in-one pack-n-play that has a bassinet feature and can also convert into a crib, diapers, bottles, breast pump and clothing. Childcare/Caregiver(s): Both MOB and FOB will provide care for when not working. MOB gets 12 weeks of maternity leave at which point, will be placed in daycare. ? Transportation:? OFELIA and WINSOME reported they are both licensed drivers and have a reliable vehicle to take baby to and from all medical appointments. No transportation issues identified. Programs/Agencies Involved: [employer]; Medicaid.? Children Services/Legal Issues:? Denied. Behavioral Health Issues:?? Mental Health History: OFELIA has anxiety and depression and the FOB has anxiety, depression and bi-polar.? OFELIA was on medication prior to becoming however went off of her medication during the because she was concerned for safety. OFELIA reported her symptoms are managed at this time however she has an already scheduled appointment with her doctor to get back on her medication now that she has delivered. WINSOME is also on medication, and reported his symptoms are effectively being managed at this time. WINSOME is on a waitlist for a Psychiatrist through [facility] but for now, all medications and treatment for his mental health is being managed by his PCP. ?Substance Use History: MOB and WINSOME denied any previous or current drug or alcohol abuse. ?OFELIA used to vape with CBD and THC however quit over 2 years ago. ?Family History: MOB?s side of the family: OFELIA?s mother has bipolar and ?a whole bunch of other stuff?. OFELIA denied having any contact with her mother, stating her mother is ?toxic?. MOB?s father has anxiety and ?really bad? panic attacks and MOB?s sister has depression and anxiety.? OFELIA denied any drug or alcohol abuse on her side of the family. FOB: Maternal side: FOB?s mother and grandmother have anxiety, depression and bi-polar, FOB?s aunt has bi-polar, and FOB?s uncle, grandmother and grandfather have anxiety and depression. On the FOB?s paternal side of the family: FOLuis Fernando?s aunt, 2 great uncles and a great aunt all have depression and schizophrenia. WINSOME stated that all of the relatives he identified as having mental health issues also abuse either prescription drugs or alcohol or both. ?Drug Screens: MOB?s drug screen results were negative with MDMA being a test that was not preformed. [place] was not tested. Family/Social Stressors: ?MOB and FOB denied any current family or social stressors. Support Systems: ?OFELIA identified her biggest support as the FOB, her 2 best friends, (one lives [id number]), ?MOB?s father (lives in [place]) and ?s paternal grandfather (PGF) who lives in [place]. ? Depression/Shaken Baby/Safe Sleeping: raw cheese worker provided verbal and written education on PPD, Safe Sleeping and Shaken Baby.? raw cheese worker reviewed increased risk factors for PPD. MOB stated she did not experience PPD with her first-born. MOB and FOB verbalized an understanding.??? ASSESSMENT:? MOB and FOB provided consent to the social work visit. When health and social care teacher arrived, MOB was sitting on a couch holding and the FOB was sitting near-by on the hospital bed. raw cheese worker observed positive interaction between the MOB and FOB as well as towards .? MOB were verbally engaged, joked with one-another and were very attentive towards and ?s needs. At one point, the FOB changed . ?At the end of the assessment, health and social care teacher requested to speak with the MOB alone which MOB and FOB were both agreeable to. MOB reported feeling safe, denied any previous or current domestic violence, drug or alcohol abuse or unmanaged mental health issues with either herself of the FOB. Safe Plan of Care for related to substance use: N/A; not needed.? PLAN:? Baby to be discharged home when ready.? raw cheese worker also provided written information on depression, depression resources and Help Me Grow as additional resources offered by health and social care teacher which MOB and FOB accepted. No other services requested or indicated. Geovanna Frost, SPRINKLER IRRIGATION EQUIPMENT MECHANIC, ORDER ENTRY
== END 2024-07-22 20:12 | disposition home or self-care (01) | DRG 539 ==
PROVIDERS: Admitting Provider Obstetrics & Gynecology; Referring Provider Obstetrics & Gynecology; Visit Provider Obstetrics & Gynecology
PROC: 10D00Z1 Extraction of Products of Conception, Low, Open Approach (ICD-10-PCS; CPT 59514; principal; 2024-07-21 07:00)
DX: O34.219 Maternal care for unspecified type scar from previous cesarean delivery (principal); F32.A Depression, unspecified; O24.429 Gestational diabetes mellitus in childbirth, unspecified control; F41.9 Anxiety disorder, unspecified; O99.344 Other mental disorders complicating childbirth; Z87.891 Personal history of nicotine dependence; Z86.16 Personal history of COVID-19; Z37.0 Single live birth; O26.843 Uterine size-date discrepancy, third trimester; O69.2XX0 Labor and delivery complicated by other cord entanglement, with compression, not applicable or unspecified; Z30.09 Encounter for other general counseling and advice on contraception; Z67.91 Unspecified blood type, Rh negative; Z3A.39 39 weeks gestation of pregnancy; O26.893 Other specified pregnancy related conditions, third trimester
CPT/HCPCS: 59050; 80307; 82962; 85025; 85027; 85461; 86780; 86850; 86900; 86901; 87340; 88302; 90384; 99221; A4216; G0378; J2405; J2790; J2791

== ENCOUNTER → 2024-08-16 | Outpatient (CLI) | payer MEDICAID, SELFPAY ==
--- NOTE | 2024-08-16 12:53 | US_ITS ---
PROCEDURE: ULTRASOUND SOFT TISSUE EXTREMITY 08/16/2024 REASON FOR EXAM: LOOK FOR FLUID COLLECTION LLQ SUBQ TISSUE. SLIGHT SWELLING. PAIN. TECHNIQUE: Complete abdominal ultrasound marie-scale images with color doppler. COMPARISON: No relevant prior. FINDINGS: No masses or fluid collections are demonstrated. Fascial planes are maintained. US/Abdomen Limited IMPRESSION: NORMAL STUDY. Reading Location: [place] [id number]
== END | disposition home or self-care (01) ==
LOC: US 12:52
PROVIDERS: PCP Clinical Nurse Specialist Adult Health; Referring Provider Obstetrics & Gynecology; Visit Provider Obstetrics & Gynecology
DX: R10.32 Left lower quadrant pain (principal)
CPT/HCPCS: 76705

== ENCOUNTER 2024-10-12 15:45 | Emergency (ER) | payer MEDICAID, SELFPAY ==
[2024-10-12 15:46] VITALS: BP 130/86; PULSE 86; RESP 16; TEMP 36.8; O2SAT 98; BMI 41.7
--- NOTE | 2024-10-12 16:16 | US_ITS ---
PROCEDURE: GALLBLADDER 10/12/2024 REASON FOR EXAM: PAIN COMPARISON: No relevant prior exams. FINDINGS: Liver: Normal in size. Mild increased echogenicity of the hepatic parenchyma compatible with mild hepatic steatosis. No discrete focal lesion is seen in the liver. Gallbladder: Normal. No cholelithiasis, sludge, wall thickening, or pericholecystic fluid. No sonographic Blanca's sign was elicited on this exam. Common bile duct: Normal measuring up to 0.4 cm in diameter. Pancreas: Visualized portions are sonographically unremarkable. Other: Visualized right kidney is unremarkable. No right upper quadrant ascites. US/Gallbladder IMPRESSION: Mild hepatic steatosis. Normal gallbladder. No cholelithiasis or biliary ductal dilatation. Reading Location: [id number]
--- NOTE | 2024-10-12 17:24 | ED.RN ---
Pt checked in and then stated she was leaving to take her infant daughter to a supervisor liquid yeast and would return in approx 30 minutes to be seen.
[2024-10-12 17:45] VITALS: BP 141/84; PULSE 68; RESP 16; O2SAT 100
--- NOTE | 2024-10-12 17:46 | ED.RN ---
Pt did not return from taking to tube mill operator's.
--- NOTE | 2024-10-12 18:06 | ED.RN ---
Pt returned after 2 hrs, ready to be evaluated
[2024-10-12 19:00] VITALS: BP 126/81; PULSE 59; RESP 18; O2SAT 100
[2024-10-12 19:23] LABS: Internal QC Validated? YES +Cl - CLEAR BKGD; Pregnancy, Serum, hCG Quali. NEGATIVE Negative; Record Kit Lot#, Serum Preg. 962302
[2024-10-12 19:56] LABS: Lipase 32 U/L (13-75)
[2024-10-12 20:04] LABS: AST(SGOT) 37 U/L (<=31); Alanine Aminotransfer ALT/SGPT 31 U/L (<=34); Albumin, Serum 4.2 g/dL (3.5-5.0); Alkaline Phosphatase 89 U/L (35-104); Anion Gap 13 (5-15); BUN 11 mg/dL (4-19); BUN/Creat Ratio 11.2 RATIO (10-20); Bilirubin, Direct 0.12 mg/dL (0.00-0.30); Calcium,Total 9.1 mg/dL (7.6-11.0); Carbon Dioxide 21.0 mmol/L (21.0-32.0); Chloride 103 mmol/L (98-108); Estimated Creatinine Clearance 92.27 ml/min (50-250); Globulin 3.2 g/dL (2.2-4.2); Glucose 93 mg/dL (70-99); Potassium 4.2 mmol/L (3.3-5.1)
--- NOTE | 2024-10-12 20:04 | ED.VIS.GI ---
HPI HPI - GI History of Present Illness Chief Complaint: Abd Pain Informant: patient Abdominal Pain/Flank Pain Onset: Weeks Narrative Narrative: Sent in by primary care office for upper abdominal pain for the past week. 2 months currently bottlefeeding. Normal bowel movements. No black or bloody stools. Nausea that is transient. No vomiting. There is concerns for cholecystitis outpatient sent here for evaluation. She had a bilateral tubal ligation with her . PFSH PFSH Medical History Rh negative status during Depression Anxiety Gestational diabetes Pneumonia Pneumonia due to COVID-19 virus Post-COVID syndrome Fatigue Loss of hair Rapid weight gain Home Medications ?Medication ?Instructions ?Recorded ?Last Taken ?Type fluoxetine 20 mg capsule (Prozac) 20 mg PO QDAY #90 caps 08/04/24 Unknown Rx ibuprofen 800 mg tablet 800 mg PO Q8H PRN pain #30 tabs 08/04/24 Unknown Rx omeprazole 40 mg capsule,delayed 40 mg PO DAILY #30 caps 10/12/24 Unknown Rx release sucralfate 1 gram tablet (Carafate) 1 g PO Q6H #60 tabs 10/12/24 Unknown Rx Allergy/AdvReac Type Severity Reaction Status Date / Time codeine AdvReac Severe headaches Verified 10/12/24 15:47 Family History Father Diverticulitis Mother Fibromyalgia Sister Endometriosis Grandfather Congenital heart defect Surgical History H/O: S/P Social History adopted: No household members: significant other and children number of children: 2 current occupational status: employed 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 - [employer] current occupational exposures/hazards: No pets and animals: Yes (Not managing the litter box) pets and animals: cat(s) and dog(s) history of recent travel: No sexually active: Yes Smoking Status: Former smoker alcohol intake: never substance use type: other details: Vape with CBD & THC well-balanced diet: rarely or never caffeine: No eating out: rarely or never during the past year weight has: increased > 10 lbs what type of physical activity do you participate in: walking frequency: 3-4 times per week duration: 15-30 minutes/day seatbelt use: always do you feel safe at home: Yes additional social history: BF: Adrian - alarm installer ROS ROS ED Constitutional Constitutional ED: Denies chills, fever(s) or sweats ENT ENT ED: Denies sore throat Cardiovascular Cardiovascular: Denies chest pain, leg edema, palpitations or racing heartbeat Respiratory/Chest Respiratory/Chest: Denies cough, dyspnea or dyspnea on exertion Gastrointestinal Gastrointestinal: Reports abdominal pain and nausea; Denies diarrhea or vomiting Genitourinary Genitourinary ED: Denies dysuria, hematuria or urinary frequency Musculoskeletal Musculoskeletal: Denies back pain, extremity pain or neck pain Integumentary Denies rash or wounds Neurologic Neurologic: Denies headache(s), paresthesias or weakness EXAM Physical Exam Const Vital Signs: 10/12/24 15:46 10/12/24 17:45 10/12/24 19:00 Temperature 98.2 F Temperature Source Oral Pulse Rate 86 68 59 L Respiratory Rate 16 16 18 Blood Pressure 130/86 H 141/84 H 126/81 H Blood Pressure Mean 100 103 96 Pulse Ox 98 100 100 Oxygen Delivery Method Room Air Room Air Room Air 10/12/24 21:00 10/12/24 22:02 Temperature 97.8 F Temperature Source Pulse Rate 68 82 Respiratory Rate 18 16 Blood Pressure 121/84 H 116/80 Blood Pressure Mean 96 92 Pulse Ox 100 100 Oxygen Delivery Method Room Air Positive well nourished and well developed General Appearance ED: well developed and NAD HEENT Reports moist mucous membranes normocephalic and atraumatic Eyes General Eye ED: Yes normal appearance of both eyes Neck full ROM Chest Wall Chest: Negative for tenderness Resp normal respiratory effort and normal air movement Effort and Inspection: symmetric chest movement; Negative for respiratory distress Cardio regular rate, regular rhythm and no murmurs Peripheral Pulses: pulses 2+ throughout GI normal to inspection, nondistended, normoactive bowel sounds GI Narrative: Soft abdomen mild pain epigastric and right upper quadrant. No guarding or rebound. Negative McBurney's. Palpation: Negative for guarding or rebound tenderness present Extremity normal to inspection General Extremety ED: Negative for edema or tenderness General Extremity: Negative for edema Neuro oriented x3 and no sensory deficits noted Sensorium / Orientation: awake and alert Skin no rashes or lesions noted and no wounds MDM MDM MDM Narrative Medical decision making narrative: Interventions / MDM: Differential diagnosis: Gastritis, abdominal pain Diagnosis considered but do not suspect: Cholecystitis however ultrasound normal. My EKG interpretation: N/A Imaging independently reviewed and interpreted by myself: Gallbladder ultrasound: Mild hepatic steatosis. Normal gallbladder no gallstones. Normal common bile duct. External documents reviewed: N/A Test considered but not ordered:N/A ED course: Patient workup initiated through triage with called and by primary care team. Ultrasounds ordered. My reevaluation for mild tenderness. Ultrasound was already obtained and pending. Abdominal labs were ordered. She declined any medications. Ultrasound normal labs returned normal stable. I did add GI cocktail which helped her symptoms she is on 20 mg of omeprazole. I will change this to 40 mg daily will add Carafate, GI follow-up given. She states upper endoscopy a few years ago. All questions were answered. Re-evaluation: stable Disposition discussed with patient/family/significant other: Patient Case discussed with consulting clinician: N/A This note was generated with [employer] dictation software. It may contain incorrect words, spelling, and punctuation that were not noted in checking the note before signing. Lab Data Attestation: I reviewed the patient's lab results. Labs: Laboratory Results - last 24 hr 10/12/24 10/12/24 10/12/24 18:55 18:55 21:21 WBC Cancelled 7.1 Corrected WBC Cancelled RBC Cancelled 4.78 Hgb Cancelled 13.9 Hct Cancelled 43.4 MCV Cancelled 90.8 MCH Cancelled 29.1 MCHC Cancelled 32.0 RDW Std Deviation Cancelled 48.8 H RDW Coeff of Summer Cancelled 14.6 Plt Count Cancelled 349 MPV Cancelled 9.3 Immature Gran % (Auto) Cancelled 0.100 Neut % (Auto) Cancelled 51.9 Lymph % (Auto) Cancelled 38.7 Burnet % (Auto) Cancelled 5.0 Eos % (Auto) Cancelled 3.5 Baso % (Auto) Cancelled 0.8 Absolute Neuts (auto) Cancelled 3.7 Absolute Lymphs (auto) Cancelled 2.76 Total Counted Cancelled Neutrophils % (Manual) Cancelled Band Neutrophils % Cancelled Lymphocytes % (Manual) Cancelled Monocytes % (Manual) Cancelled Eosinophils % (Manual) Cancelled Basophils % (Manual) Cancelled Metamyelocytes % Cancelled Myelocytes % Cancelled Promyelocytes % Cancelled Blast Cells % Cancelled Plasma Cell % (Manual) Cancelled Other Cells % Cancelled Nucleated RBC % Cancelled 0 Nucleated RBCs/100 WBC Cancelled Differential Comment Cancelled Diff Path Review Cancelled Hypersegmented Neuts Cancelled Atypical Lymphocytes Cancelled Reactive Lymphocytes Cancelled Smudge Cells Cancelled Toxic Granulation Cancelled Toxic Vacuolation Cancelled Dohle Bodies Cancelled Ulises Rods Cancelled Platelet Estimate Cancelled Plt Morphology Comment Cancelled RBC Morphology Cancelled Cancelled Polychromasia Cancelled Hypochromasia Cancelled Basophilic Stippling Cancelled Anisocytosis Cancelled Microcytosis Cancelled Macrocytosis Cancelled Spherocytes Cancelled Sickle Cells Cancelled Target Cells Cancelled Tear Drop Cells Cancelled Ovalocytes Cancelled Stomatocytes Cancelled Bueno-Espy Bodies Cancelled Amira Cells Cancelled Bite Cells Cancelled Crenated Cell Cancelled Acanthocytes (Spur) Cancelled Rouleaux Cancelled Schistocytes Cancelled Sodium 137 Potassium 4.2 Chloride 103 Carbon Dioxide 21.0 Anion Gap 13 BUN 11 Creatinine 0.96 Estim Creat Clear Calc 92.27 Est GFR (MDRD) Non-Af 80 BUN/Creatinine Ratio 11.2 Glucose 93 Calcium 9.1 Total Bilirubin 0.45 Direct Bilirubin 0.12 AST 37 H ALT 31 Alkaline Phosphatase 89 Total Protein 7.4 Albumin 4.2 Globulin 3.2 Lipase 32 Serum , Qual NEGATIVE Radiography Diagnostic Testing: Clinical Impression(s) from Imaging Studies Gallbladder Ultrasound 10/12/24 16:16 IMPRESSION: Mild hepatic steatosis. Normal gallbladder. No cholelithiasis or biliary ductal dilatation. Reading Location: [id number] Discharge Plan Triage Chief Complaint: Abd Pain ED Provider: Jaun Cruz Dx/Rx/DC Orders Clinical Impression: Gastritis, Abdominal pain Instructions: ED Gastritis (Adult) Prescriptions: New sucralfate [Carafate] 1 gram tablet 1 g PO Q6H Qty: 60 0RF omeprazole 40 mg capsule,delayed release(DR/EC) 40 mg PO DAILY Qty: 30 0RF No Action fluoxetine [Prozac] 20 mg capsule 20 mg PO QDAY Qty: 90 4RF ibuprofen 800 mg tablet 800 mg PO Q8H PRN (Reason: pain) Qty: 30 0RF Primary Care Provider: Shelley Marcelino Referrals: Shelley Marcelino, BISI [Primary Care Provider] - Friend,DO Carson [Med Staff - Active Staff] - 1-2 Weeks Activity Restrictions/Additional Instructions: Normal gallbladder structures labs are normal symptoms prove GI cocktail. Increasing your omeprazole to 40 mg. take Carafate. Follow-up with GI. Print Language: [place] Disposition Disposition: Home, Self Care Discharge Date/Time: 10/12/24 22:03
[2024-10-12 21:00] VITALS: BP 121/84; PULSE 68; RESP 18; O2SAT 100
[2024-10-12] MEDS: Lidocaine 2% Viscous15 ML UDC 15 ML PO (21:06)
[2024-10-12 21:26] LABS: Hematocrit 43.4 % (37-47); Hemoglobin 13.9 g/dL (12.0-15.0); Immature Granulocytes Count 0.010 X10^3/uL (0.0-0.0); Mean Corp Hgb Conc 32.0 g/dL (32-36); Mean Corpuscular Volume 90.8 fL (81-99); Mean Platelet Vol. 9.3 fl (6.2-12.0); NRBC Flagged by Analyzer 0 % (0-5); Platelet Count 349 K/mm3 (150-450); RBC Distribution Width CV 14.6 % (11.6-14.6); RBC Distribution Width SD 48.8 fl (35.1-43.9); Red Blood Count 4.78 M/mm3 (4.2-5.4); White Blood Count 7.1 K/mm3 (4.4-11.0)
[2024-10-12 22:02] VITALS: BP 116/80; PULSE 82; RESP 16; TEMP 36.6; O2SAT 100
== END 2024-10-12 22:03 | disposition home or self-care (01) ==
PROVIDERS: Emergency Provider Emergency Medicine; PCP Clinical Nurse Specialist Adult Health; Visit Provider Emergency Medicine
DX: K29.70 Gastritis, unspecified, without bleeding (principal); R10.10 Upper abdominal pain, unspecified; F41.9 Anxiety disorder, unspecified; Z79.899 Other long term (current) drug therapy; Z87.891 Personal history of nicotine dependence
CPT/HCPCS: 36415; 76705; 80048; 80076; 83690; 84703; 85025; 99283; A4216